=== PATIENT | male | born 1955 | race Caucasian/White ===

== ENCOUNTER → 2016-12-04 | Day surgery (SDC) | payer BC ==
[~2016-12-04] MED LIST: Phenylephrine 2.5% Ophth Soln 2 ML Bot EYERT SCH
[2016-12-04] MEDS: Brimonidine 0.2% Ophth Soln 5 ML Bottle EYERT SCH ×2 (08:45→09:39)
[2016-12-04 11:15] VITALS: BP 138/82
== END ==
LOC: JD.SDS 08:00
PROVIDERS: ATTEND Ophthalmology
DX: H26.491 Other secondary cataract, right eye (principal); H02.831 Dermatochalasis of right upper eyelid; H02.834 Dermatochalasis of left upper eyelid; I10 Essential (primary) hypertension; E78.00 Pure hypercholesterolemia, unspecified; Z98.41 Cataract extraction status, right eye; Z98.42 Cataract extraction status, left eye; Z96.1 Presence of intraocular lens; Z96.649 Presence of unspecified artificial hip joint; Z98.890 Other specified postprocedural states; Z83.518 Family history of other specified eye disorder; Z79.82 Long term (current) use of aspirin; Z79.899 Other long term (current) drug therapy